=== PATIENT | male | born 1990 | race Caucasian/White ===

== ENCOUNTER 2019-07-16 08:24 | Emergency (ER) | payer OTHER ==
[2019-07-16 08:39] VITALS: BP 125/80
--- NOTE | 2019-07-16 08:55 | UC ---
General HPI - HPI Summary HPI Summary: Here with partner. States last night he developed right ear pain that got significantly worse as the night progressed. Ibuprofen 600 mg barely helped reduce the pain. No fever. No URI illness. Otherwise well. Has not been swimming. Does not put anything in his ears. Meds: reviewed - History of Current Complaint Chief Complaint: UCEar Stated Complaint: R EAR PAIN Time Seen by Provider: 07/16/19 08:26 Pain Intensity: 7 - Allergy/Home Medications Allergies/Adverse Reactions: Allergies Allergy/AdvReac Type Severity Reaction Status Date / Time iodine Allergy Anaphylatic Verified 07/16/19 08:40 Shock Home Medications: Home Medications Amoxicillin PO (*) [Amoxicillin 500 MG CAP*] 1,000 mg PO TID #60 cap 07/16/19 [ Rx] Buprenorp/Nalox 8-2 MG FILM [Suboxone 8 mg-2 mg Sl Film] 1 07/16/19 [History] PMH/Surg Hx/FS Hx/Imm Hx Previously Healthy: Yes - Surgical History Surgery Procedure, Year, and Place: appendics - Social History Alcohol Use: Rare Substance Use Type: None Smoking Status (MU): Light Every Day Tobacco Smoker Review of Systems All Other Systems Reviewed And Are Negative: Yes ENT: Positive: Ear Ache Physical Exam Triage Information Reviewed: Yes Appearance: Well-Appearing Vital Signs: Initial Vital Signs Temp 97.8 F 07/16/19 08:32 Pulse 86 07/16/19 08:32 Resp 18 07/16/19 08:32 BP 125/80 07/16/19 08:32 Pulse Ox 98 07/16/19 08:32 Eyes: Positive: Conjunctiva Clear ENT: Positive: Pharyngeal erythema, Other - left TM: Normal. Right TM ext canal : significant edema, erythema. TM bulging and opaque with erythem Respiratory: Positive: Lungs clear, Normal breath sounds Cardiovascular: Positive: RRR, No Murmur Course/Dx - Course Course Of Treatment: This is a 29 r old with right ear pain Right acute otitis media Plan Start Amoxicillin as prescribed Continue tylenol and/or ibuprofen as directed as needed for pain/fever If symptoms persist or worsen, recommend follow up with your PCP or return to urgent care - Diagnoses Provider Diagnosis: Acute otitis media Discharge ED - Sign-Out/Discharge Documenting (check all that apply): Patient Departure All imaging exams completed and their final reports reviewed: No Studies - Discharge Plan Condition: Good Disposition: HOME Prescriptions: Amoxicillin PO (*) [Amoxicillin 500 MG CAP*] 1,000 mg PO TID #60 cap Patient Education Materials: Ear Infection (ED) Forms: *Work Release Referrals: No Primary Care Phys,NOPCP [Primary Care Provider] - Additional Instructions: Start Amoxicillin as prescribed Continue tylenol and/or ibuprofen as directed as needed for pain/fever If symptoms persist or worsen, recommend follow up with your PCP or return to urgent care - Billing Disposition and Condition Condition: GOOD Disposition: Home
== END 2019-07-16 08:57 | disposition home or self-care (01) ==
LOC: UCEAST 08:24
DX: H66.91 Otitis media, unspecified, right ear (principal); F17.290 Nicotine dependence, other tobacco product, uncomplicated; Z91.09 Other allergy status, other than to drugs and biological substances
CPT/HCPCS: 99211; G0463